=== PATIENT | female | born 1955 | race Caucasian/White ===

== ENCOUNTER 2024-06-28 14:12 | Emergency (ER) | payer MEDICARE ==
[~2024-06-28] VITALS: Ht 162.6 cm; Wt 66.5 kg
[2024-06-28 14:14] VITALS: BP 165/107; PULSE 84; TEMP 98.2; O2SAT 99
[2024-06-28] MEDS ORDERED: IBUP-1986 PO (15:23)
[2024-06-28] MEDS ORDERED: CYCL-1 PO (15:23)
[2024-06-28] MEDS ORDERED: LIDO700A32 TOP (15:23)
--- NOTE | 2024-06-28 15:23 | Physician Documentation ---
History of Present Illness ~ Chief Complaint: Neck pain Stated Complaint: NECK/BACK PAIN Time Seen by MD: 15:17 HPI This is a 69-year-old female who presents with three days of right lateral neck pain radiating to her shoulder and into the base of her skull without fever or other symptoms. Patient reports no trauma. Patient reports she feels that she may have slept on her neck wrong. Medication Reconciliation Allergies: Coded Allergies: No Known Allergies (Unverified , 06/28/24) Scheduled Cyclobenzaprine* (Cyclobenzaprine*), 1 TAB PO TID Ibuprofen (Ibuprofen), 1 TAB PO Q8H Lidocaine (Lidoderm), 1 PATCH TOP DAILY Past Medical History Past Medical History: No Pertinent History Review of Systems ROS Neck pain as stated above in the HPI, otherwise all systems are reviewed and negative. Physical Exam Vital Signs: Temperature: 98.2, Source: Oral, Heart Rate: 84, Respiratory Rate: 16, BP: 165/107, Pulse Oximetry: 99, Weight: 66.500 Oxygen Flow Rate: 0 Physical Exam VITALS: Reviewed and as above. GENERAL: Alert, nontoxic appearing, no apparent distress. HEENT:Tenderness to palpation to the right lateral neck with palpable muscle tension RESPIRATORY: No increased work of breathing, no respiratory distress, speaking in full clear sentences Progress Results/Orders Results/Orders Completed Orders - GURPREET EMERY Ketorolac Trometh 15mg/Ml Vial (Toradol (06/28/24 15:25) Medications Received in ER Medications (Trade) Dose Ordered Sig/Brittney Route PRN Reason Start Time Stop Time Status Last Admin Dose Admin (Toradol injection) 15 mg ONCE ONCE IM 06/28/24 15:25 06/28/24 15:34 DC 06/28/24 16:09 15 MG Vital Signs 06/28/24 06/28/24 14:14 16:09 Temp 98.2 Pulse 84 Resp 16 15 B/P (MAP) 165/107 Pulse Ox 99 O2 Flow Rate 0 Medical Decision Making Findings This 69-year-old female presented with right neck pain for the past three days without known injury, physical exam did demonstrate area of tenderness with palpable muscle tension. Remainder of physical exam was benign. Patient medicated for pain in department with adequate decrease in pain and discharged with prescription for muscle relaxer for musculoskeletal neck pain. Patient provided home care instructions and return to care precautions which she verbalized understanding of. Differential Dx:Considerations: Include: Cervical muscle spasm, DJD, Meningitis, Torticollis, Vertebral artery dissect., Other Departure Disposition: 01 HOME / SELF CARE / HOMELESS Impression: Primary Impression: Neck pain Condition: Improved Discharge Instructions: Acute Torticollis, Adult Additional Instructions: Please use the prescribed high-dose ibuprofen starting tomorrow, use the Flexeril muscle relaxer as needed for muscle spasms and neck pain though do not use this medication combination with opioids or alcohol, also do not drive or operate heavy machinery while taking the muscle relaxer. You may use the prescribed lidocaine patches as needed though we have them on for a maximum of 12 hours at a time and removed for at least 12 hours between applications. You may use heat packs in the area though do not use heat packs over the lidocaine patch. Please follow up with your primary care provider in the next few days. Please return to the emergency department for any new or worsening concerning symptoms including but not limited to new numbness or weakness or if you develop a fever. Do not take ibuprofen for 12 hours after the Toradol shot, please take ibuprofen with food to avoid stomach upset. Referrals: NO PRIMARY CARE PROVIDER (PCP) Prescriptions Lidocaine (Lidoderm) 5 % Adh..patch 1 PATCH TOP DAILY for 10 Days, #10 PATCH 0 Refills may wear up to 12 hours Prov: GURPREET EMERY 06/28/24 Ibuprofen (Ibuprofen) 800 Mg Tablet 1 TAB PO Q8H for pain for 10 Days, #30 TAB 0 Refills Prov: GURPREET EMERY 06/28/24 Cyclobenzaprine* (Cyclobenzaprine*) 10 Mg Tablet 1 TAB PO TID, #15 TAB Prov: GURPREET EMERY 06/28/24 Education Educated: Patient Educated regarding: diagnosis, treatment, prognosis, need for follow up Signature Scribe Signature: No scribe Attestation: The note accurately reflects work and decisions made by me.SARA Palencia 06/28/24 22:31 GURPREET EMERY June 28, 2024 15:23
[2024-06-28] MEDS: ketorolac trometh 15mg/ml vial 15 MG/ML ML IM ONE (15:56)
[2024-06-28 16:09] VITALS: RESP 15
== END 2024-06-28 16:13 | disposition home or self-care (01) ==
LOC: ER 14:13
DX: M54.2 Cervicalgia (principal)
CPT/HCPCS: 96372; 99283; J1885